=== PATIENT | female | born 1960 | race Caucasian/White ===

== ENCOUNTER 2022-04-16 08:31 | Outpatient (CLI) | payer MEDICAID, SELFPAY | END 2022-04-16 08:32 | disposition home or self-care (01) | LOC: LKVREF 04-19 12:58 | PROVIDERS: PCP Family Medicine; Visit Provider Family Medicine | DX: Z00.00 Encounter for general adult medical examination without abnormal findings (principal); E78.5 Hyperlipidemia, unspecified; I10 Essential (primary) hypertension; E78.00 Pure hypercholesterolemia, unspecified | CPT/HCPCS: 80053; 80061 ==

== ENCOUNTER 2022-05-31 14:38 | Outpatient (CLI) | payer MEDICAID, SELFPAY ==
--- NOTE | 2022-05-31 15:00 | CRLHL7_ITS ---
For Patients: As a result of the Century Cures Act, medical imaging exams and procedure reports are released immediately into your electronic medical record. You may view this report before your referring provider. If you have questions, please contact your health care provider. INDICATION: Lung cancer screening. History of smoking. High risk patient with greater than 20 pack-year smoking history. TECHNIQUE: Low-dose lung cancer screening non-contrast CT chest. Dose reduction techniques were used. COMPARISON: 05/30/2014 FINDINGS: NODULES: Stable 5 millimeter nodule within the left lower lobe, 3/122. Stable 3 millimeter nodule left upper lobe, 3/45. mild biapical pleural parenchymal scarring. Other tiny nodular like densities are present elsewhere measuring 3 millimeters or less bilaterally. LUNGS AND PLEURA: Mild emphysematous changes. No infiltrate. No effusion. MEDIASTINUM: Calcified right hilar lymph nodes representing sequela of granulomatous disease. CORONARY ARTERY CALCIFICATION: Moderately severe. LIMITED UPPER ABDOMEN: Small calcified gallstones within the gallbladder again noted. Stable simple cyst within the liver. MUSCULOSKELETAL: Normal. IMPRESSION: Innumerable small nodules bilaterally, similar to the prior study, measuring 5 millimeters or less. No definitive new nodule. LUNG-RADS CATEGORY: 2: Benign. RADIOLOGIST RECOMMENDATION: Continue annual screening with low-dose CT chest in 12 months. Please note that all CT scans at this facility use dose modulation, iterative reconstruction, and/or weight-based dosing when appropriate to reduce radiation dose to as low as reasonably achievable. Dictated by Rob Lyon MD @ 06/01/2022 10:25:40 AM (Electronically Signed)
== END 2022-05-31 14:39 | disposition home or self-care (01) ==
LOC: CT 14:40
PROVIDERS: PCP Family Medicine; Visit Provider Family Medicine
DX: Z72.0 Tobacco use (principal); Z12.2 Encounter for screening for malignant neoplasm of respiratory organs; R91.8 Other nonspecific abnormal finding of lung field
CPT/HCPCS: 71271

== ENCOUNTER 2022-09-09 13:42 | Outpatient (CLI) | payer MEDICAID, SELFPAY ==
--- NOTE | 2022-09-09 14:00 | CRLHL7_ITS ---
For Patients: As a result of the Century Cures Act, medical imaging exams and procedure reports are released immediately into your electronic medical record. You may view this report before your referring provider. If you have questions, please contact your health care provider. Indication: Intermittent claudication Comparison: None Technique: Routine duplex arterial examination of bilateral lower extremities including 2D and spectral analysis, and color Doppler imaging was performed. Findings: In the right lower extremity there are multiphasic waveforms in the common femoral artery, profunda femoral artery, superficial femoral artery, and popliteal artery. Similarly, at the ankle, there are multiphasic waveforms in the posterior tibial artery, and dorsalis pedis arteries. No elevated velocities. In the left lower extremity there are multiphasic waveforms within the common femoral artery, profunda femoral artery, superficial femoral artery, and popliteal artery. Similarly, at the ankle, there are multiphasic waveforms in the posterior tibial artery, and dorsalis pedis arteries. No elevated velocities. Impression: Atherosclerotic disease is present within both lower extremities. No elevated velocities to suggest focal stenosis. Dictated by Rob Lyon MD @ 09/10/2022 10:55:04 AM (Electronically Signed)
== END 2022-09-09 13:43 | disposition home or self-care (01) ==
LOC: US 13:42
PROVIDERS: PCP Family Medicine; Visit Provider Family Medicine
DX: Z72.0 Tobacco use (principal); I73.9 Peripheral vascular disease, unspecified; I70.202 Unspecified atherosclerosis of native arteries of extremities, left leg
CPT/HCPCS: 93926

== ENCOUNTER 2022-09-23 13:44 | Outpatient (CLI) | payer MEDICAID, SELFPAY ==
--- NOTE | 2022-09-23 14:00 | CRLHL7_ITS ---
For Patients: As a result of the Cures Act, medical imaging exams and procedure reports are released immediately into your electronic medical record. You may view this report before your referring provider. If you have questions, please contact your health care provider. BILATERAL SCREENING MAMMOGRAM WITH COMPUTER-AIDED DETECTION AND TOMOSYNTHESIS TECHNIQUE: CC and MLO views were obtained. These mammographic images have been obtained using full-field digital technique. These mammographic images were interpreted with the benefit of computer-aided detection. Breast Tomosynthesis was used in this interpretation. COMPARISON FILM: 03/27/21, 03/21/20, 03/20/19. FINDINGS: There are scattered areas of fibroglandular density IMPRESSION: There is no radiographic evidence for malignancy. ASSESSMENT: BI-RADS Category 1: Negative RECOMMENDATION: Routine screening mammogram in 1 year. A lay language report of this examination will be provided to the patient. Rob Lyon M.D. Diagnostic Radiologist [email or web address] MELANIE/Dictated by: Rob Lyon MD @ 09/24/2022 9:50:00 AM MELANIE/Dictated by: Rob Lyon MD @ 09/24/2022 9:50:00 AM (Electronically Signed)
== END 2022-09-23 13:45 | disposition home or self-care (01) ==
LOC: MAMMO 13:45
PROVIDERS: PCP Family Medicine; Visit Provider Family Medicine
DX: Z12.31 Encounter for screening mammogram for malignant neoplasm of breast (principal)
CPT/HCPCS: 77063; 77067

== ENCOUNTER 2023-04-19 09:08 | Outpatient (CLI) | payer MEDICAID, SELFPAY | END 2023-04-19 09:09 | disposition home or self-care (01) | LOC: NFLDREF 04-20 06:39 | PROVIDERS: PCP Family Medicine; Referring Provider Family Medicine; Visit Provider Family Medicine | DX: I10 Essential (primary) hypertension (principal); E78.5 Hyperlipidemia, unspecified; E78.00 Pure hypercholesterolemia, unspecified | CPT/HCPCS: 80048; 80053; 80061 ==

== ENCOUNTER 2023-06-13 13:45 | Outpatient (CLI) | payer MEDICAID, SELFPAY ==
--- NOTE | 2023-06-13 14:00 | CRLHL7_ITS ---
For Patients: As a result of the Century Cures Act, medical imaging exams and procedure reports are released immediately into your electronic medical record. You may view this report before your referring provider. If you have questions, please contact your health care provider. INDICATION: Lung cancer screening. Significant smoking history. TECHNIQUE: Low-dose volumetric helical scanning of the thorax was performed without IV contrast material. Coronal and sagittal reconstructions were obtained. COMPARISON: Chest CT of 05/31/2021 FINDINGS: Multiple new noncalcified pulmonary nodules are demonstrated. The largest new nodule is demonstrated in the right upper lobe on image 168 of series 2 and measures up to 8 mm. The lungs are clear. There is no significant airway abnormality. No pleural effusion is demonstrated. There is no mediastinal or hilar adenopathy. The heart size is normal. Calcified coronary arterial plaque is again demonstrated. Images of the upper abdomen are unremarkable. IMPRESSION: 1. Multiple new noncalcified pulmonary nodules, the largest measuring up to 8 mm. Question metastatic disease. Lung-RADS CATEGORY 4BS: VERY SUSPICIOUS: CT of the chest, abdomen and pelvis with IV contrast is recommended. 2. Coronary artery disease. Please note that all CT scans at this facility use dose modulation, iterative reconstruction, and/or weight-based dosing when appropriate to reduce radiation dose to as low as reasonably achievable. Dictated by Norberto Cuenca MD @ 06/14/2023 10:09:18 AM (Electronically Signed)
== END 2023-06-13 13:46 | disposition home or self-care (01) ==
LOC: CT 13:46
PROVIDERS: PCP Family Medicine; Visit Provider Family Medicine
DX: Z12.2 Encounter for screening for malignant neoplasm of respiratory organs (principal); R91.8 Other nonspecific abnormal finding of lung field; I25.10 Atherosclerotic heart disease of native coronary artery without angina pectoris; Z72.0 Tobacco use
CPT/HCPCS: 71271

== ENCOUNTER 2023-06-21 08:23 | Outpatient (CLI) | payer MEDICAID, SELFPAY ==
[2023-06-21 08:52] LABS: Creatinine* 0.6 mg/dL (0.5-1.5); Estimated Glomerular Filt Rate 100 ml/min
--- NOTE | 2023-06-21 09:00 | CRLHL7_ITS ---
For Patients: As a result of the Century Cures Act, medical imaging exams and procedure reports are released immediately into your electronic medical record. You may view this report before your referring provider. If you have questions, please contact your health care provider. INDICATION: Abnormal finding on lung of CT chest, evaluation for metastatic disease. TECHNIQUE: CT chest, abdomen and pelvis acquired with 77 mL Isovue 370 IV contrast. COMPARISON: 06/13/[address] FINDINGS: CHEST: Cardiovascular structures: Heart size is normal. Thoracic aorta and main pulmonary artery are normal in caliber. Coronary artery calcifications. Mediastinum and katie: No mass or adenopathy. 1.5 cm left thyroid nodule. Lungs and pleura: Numerous small, upper lung predominant pulmonary nodules measuring to 7 mm as seen on the screening chest CT. Chest wall and axilla: No mass or adenopathy. Bones: No suspicious bone lesions. Unremarkable for age. ABDOMEN AND PELVIS: Liver: Small left hepatic lobe cyst. Gallbladder and bile ducts: Cholelithiasis. Pancreas: Unremarkable. Spleen: Unremarkable. Adrenal glands: Unremarkable. Kidneys: No mass, stone, or hydronephrosis. Tiny vascular calcifications in the left renal hilum. GI tract: Colonic diverticulosis without diverticulitis Vascular structures: Atherosclerosis. Lymph nodes: Unremarkable. Miscellaneous: Unremarkable. No free air or significant free fluid. Pelvic Organs: Unremarkable. Bones: No suspicious bone lesions. Unremarkable for age. IMPRESSION: 1. Tiny upper lobe predominant bilateral pulmonary nodule similar to the screening chest CT. Predominance is more typical of infectious ventilation of causes, however metastatic disease not excluded. 2. No evidence for primary tumor. 3. Cholelithiasis. Please note that all CT scans at this facility use dose modulation, iterative reconstruction, and/or weight-based dosing when appropriate to reduce radiation dose to as low as reasonably achievable. Dictated by Samson Reyes MD @ 06/21/2023 12:53:45 PM (Electronically Signed)
== END 2023-06-21 08:24 | disposition home or self-care (01) ==
LOC: CT 08:23
PROVIDERS: PCP Family Medicine; Visit Provider Family Medicine
DX: R91.8 Other nonspecific abnormal finding of lung field (principal); K80.20 Calculus of gallbladder without cholecystitis without obstruction
CPT/HCPCS: 36415; 71260; 74177; 82565; Q9967

== ENCOUNTER 2023-06-29 09:31 | Outpatient (CLI) | payer MEDICAID, SELFPAY ==
--- NOTE | 2023-06-29 09:45 | CRLHL7_ITS ---
For Patients: As a result of the Century Cures Act, medical imaging exams and procedure reports are released immediately into your electronic medical record. You may view this report before your referring provider. If you have questions, please contact your health care provider. INDICATION: Nontoxic single thyroid nodule COMPARISON: CT 06/21/2023 TECHNIQUE: Callahan scale and color Doppler images were acquired of the thyroid gland. FINDINGS: Cystic nodule left thyroid lobe measures 1.6 x 1.2 x 1.2 cm. The right lobe measures 3.3 x 1.8 x 1.2 cm and the left lobe measures 4.6 x 1.6 x 1.5 cm in size. The color Doppler images demonstrate normal vascularity. Isthmus measures 4 millimeters. There is no evidence of cervical lymphadenopathy or parathyroid mass. IMPRESSION: Benign 1.6 cm cystic nodule left thyroid lobe, TR 1. No follow-up is necessary. Dictated by Rob Lyon MD @ 06/29/2023 10:14:51 AM (Electronically Signed)
== END 2023-06-29 09:32 | disposition home or self-care (01) ==
LOC: US 09:32
PROVIDERS: PCP Family Medicine; Visit Provider Family Medicine
DX: E04.1 Nontoxic single thyroid nodule (principal)
CPT/HCPCS: 76536

== ENCOUNTER 2023-10-19 08:45 | Outpatient (CLI) | payer MEDICAID, SELFPAY ==
--- NOTE | 2023-10-19 09:00 | CRLHL7_ITS ---
For Patients: As a result of the Century Cures Act, medical imaging exams and procedure reports are released immediately into your electronic medical record. You may view this report before your referring provider. If you have questions, please contact your health care provider. Indication: Pulmonary nodules Technique: Noncontrast CT chest Please note that all CT scans at this facility use dose modulation, iterative reconstruction, and/or weight-based dosing when appropriate to reduce radiation dose to as low as reasonably achievable. Comparison: 06/21/2023, 06/13/2023. Findings: In the upper abdomen, stones in the gallbladder noted. Calcified splenic granulomas. Vascular calcifications. 9 millimeter simple intrahepatic cyst. No pleural or pericardial effusion. Left thyroid lobe nodule measures 1.3 cm, unchanged. Stable upper limits of normal lymph node in the precarinal space of the mediastinum. Other subcentimeter lymph nodes elsewhere are similar, particularly in the prevascular space. Degenerative joint disease at the left shoulder with degenerative subchondral cystic change. Stable 2 millimeter nodular densities within the right upper lobe. Tiny nodular densities elsewhere are similar bilaterally. Impression: Multiple small bilateral pulmonary nodules are present measuring less than 3 millimeters. Continued follow-up in 1 year recommended. Please note that all CT scans at this facility use dose modulation, iterative reconstruction, and/or weight-based dosing when appropriate to reduce radiation dose to as low as reasonably achievable. Dictated by Rob Lyon MD @ 10/19/2023 12:39:50 PM (Electronically Signed)
--- NOTE | 2023-10-19 09:45 | CRLHL7_ITS ---
For Patients: As a result of the Century Cures Act, medical imaging exams and procedure reports are released immediately into your electronic medical record. You may view this report before your referring provider. If you have questions, please contact your health care provider. BILATERAL SCREENING MAMMOGRAM WITH COMPUTER-AIDED DETECTION AND TOMOSYNTHESIS TECHNIQUE: CC and MLO views were obtained. These mammographic images have been obtained using full-field digital technique. These mammographic images were interpreted with the benefit of computer-aided detection. Breast Tomosynthesis was used in this interpretation. COMPARISON FILM: 09/23/22, 03/27/21, 03/21/22. FINDINGS: There are scattered areas of fibroglandular density IMPRESSION: There is no radiographic evidence for malignancy. ASSESSMENT: BI-RADS Category 1: Negative RECOMMENDATION: Routine screening mammogram in 1 year. A lay language report of this examination will be provided to the patient. Rob Lyon M.D. Diagnostic Radiologist [email or web address] MEALNIE/Dictated by: Rob Lyon MD @ 10/19/2023 11:03:00 AM (Electronically Signed)
== END 2023-10-19 08:46 | disposition home or self-care (01) ==
LOC: CT 08:45
PROVIDERS: PCP Family Medicine; Visit Provider Family Medicine
DX: R91.8 Other nonspecific abnormal finding of lung field (principal); Z12.31 Encounter for screening mammogram for malignant neoplasm of breast
CPT/HCPCS: 71250; 77063; 77067

== ENCOUNTER 2024-03-29 08:17 | Outpatient (CLI) | payer OTHER, SELFPAY | END 2024-03-29 08:18 | disposition home or self-care (01) | LOC: NFLDREF 04-02 11:51 | PROVIDERS: PCP Family Medicine; Referring Provider Family Medicine; Visit Provider Family Medicine | DX: I10 Essential (primary) hypertension (principal); E78.5 Hyperlipidemia, unspecified | CPT/HCPCS: 80048; 80061; 80076 ==

== ENCOUNTER 2024-10-24 12:47 | Outpatient (CLI) | payer OTHER, SELFPAY ==
--- NOTE | 2024-10-24 13:00 | CRLHL7_ITS ---
For Patients: As a result of the Century Cures Act, medical imaging exams and procedure reports are released immediately into your electronic medical record. You may view this report before your referring provider. If you have questions, please contact your health care provider. INDICATION: Follow-up pulmonary nodules. TECHNIQUE: CT chest without contrast. COMPARISON: CT chest 10/19/2023. FINDINGS: Lungs and pleura: Left lower lobe solid nodule measuring 5 mm (series 3, image 80), unchanged. Right upper lobe nodule measuring 4 mm (image 17), unchanged. Nodule along the right minor fissure measuring 4 mm (image 43), unchanged. Peripheral right upper lobe pulmonary nodules measuring up to 4 mm (image 30), unchanged. Numerous additional smaller bilateral upper lobe pulmonary nodules are grossly unchanged. Multiple right lower lobe pulmonary nodules measuring up to 3 mm (image 58), unchanged. Multiple small left lower lobe pulmonary nodules measuring up to 3 mm (image 41) grossly unchanged. No new or enlarging nodules. Heart and vasculature: No cardiomegaly or pericardial effusion. There are coronary artery calcifications and atherosclerotic calcifications of the aorta. No thoracic aortic aneurysm. Lymph nodes/mediastinum: Calcified hilar lymph nodes likely reflect sequela of prior granulomatous disease. Mildly prominent mediastinal lymph nodes are grossly unchanged. Chest wall: No suspicious chest wall mass or fluid collection. Upper abdomen: No acute abnormality. Bones: No acute abnormality. IMPRESSION: 1. Stable pulmonary nodules, as above. No new or enlarging nodules. Repeat examination in 1 year recommended to ensure continued stability. 2. Coronary artery calcifications. Please note that all CT scans at this facility use dose modulation, iterative reconstruction, and/or weight-based dosing when appropriate to reduce radiation dose to as low as reasonably achievable. Dictated by Mikhail Jimenez MD @ 10/27/2024 1:38:13 PM (Electronically Signed)
--- NOTE | 2024-10-24 13:30 | CRLHL7_ITS ---
For Patients: As a result of the Century Cures Act, medical imaging exams and procedure reports are released immediately into your electronic medical record. You may view this report before your referring provider. If you have questions, please contact your health care provider. DXA BONE MINERAL DENSITY STUDY Current height (in): 65. Weight (lb): 150. Menopause age: 48. Ethnicity: White. 1. Have you had a previous hip or vertebral fracture? No. 2. Have you had any fractures during your adult life which did not result from significant trauma (e.g., auto accident)? No. 3. Did either of your parents have a hip fracture? No. 4. Do you smoke? Yes. 5. Have you ever taken Glucocorticoids? No. 6. Do you have rheumatoid arthritis? No. 7. Do you have secondary osteoporosis? No. 8. Do you drink 3 or more alcoholic drinks per day? No. 9. Are you being treated for osteoporosis? No. 10. Have you ever taken any of the following medications: Actonel, Evista, Fosamax, Miacalcin, Reclast, Boniva, Forteo, HRT (i.e. estrogen/hormone therapy), Protelos, Prolia, Vitamin D, Calcium, other ??? please specify. ANSWER: Yes, Vitamin D, and Calcium. 11. Do you have any of the following medical conditions: Anorexia or bulimia, asthma or emphysema, end stage renal disease, hyperparathyroidism, any seizure disorders, cancer, inflammatory bowel diseases, hysterectomy, other ??? please specify. ANSWER: No. 12. What was your maximum height (inches)? 66. 13. Do you perform weight bearing exercise regularly? No. 14. Do you regularly consume dairy products? Yes. 15. Do you drink caffeinated beverages? Yes. 16. At what age did your period start? 13. 17. Are you premenopausal? No. 18. How many full term pregnancies have you had? 2. 19. Have you ever missed your period for more than 6 months in a row (not including or menopause)? No. TECHNIQUE: Bone mineral density study was performed using the [employer]. FINDINGS: The results of the study expressed as bone mineral density (BMD) are as follows: Lumbar spine L1 to L4: BMD: 0.953 g/cm2. T-score: -0.9. Z-score: 1.0. Neck Left: BMD: 0.731 cm2. T-score: -1.1. Z-score: 0.5. Right: BMD: 0.674 g/cm2. T-score: -1.6. Z-score: -0.0 . Total Left: BMD: 0.818 g/cm2. T-score: -1.0. Z-score: 0.3. Right: BMD: 0.762 g/cm2. T-score: -1.5. Z-score: -0.2. IMPRESSION: Osteopenia. BELOW. FRAX 10-year Fracture Risk Major Osteoporotic Fracture: <0.1 percent Hip Fracture: <0.1 percent Reported Risk Factors: [place] () Neck BMD= 0.674, BMI=24.9, smoking. Rob Lyon M.D. Diagnostic Radiologist [email or web address] [email or web address] DW/Dictated by: Rob Lyon MD @ 10/29/2024 8:51:00 AM (Electronically Signed)
--- NOTE | 2024-10-24 14:00 | CRLHL7_ITS ---
For Patients: As a result of the Cures Act, medical imaging exams and procedure reports are released immediately into your electronic medical record. You may view this report before your referring provider. If you have questions, please contact your health care provider. COMPARISON: 10/19/2023, 09/23/2022, 03/27/2021 TECHNIQUE: Digital mammogram in CC and MLO projections including computer-aided detection (CAD) and tomosynthesis. BREAST COMPOSITION: There are scattered areas of fibroglandular density. FINDINGS: No suspicious findings. ASSESSMENT: BI-RADS 1 Negative RECOMMENDATION: Annual screening mammogram. A lay language report of this examination will be provided to the patient. Dictated by: Rob Lyon MD @ 10/30/2024 12:30:59 (Electronically Signed)
== END 2024-10-24 12:48 | disposition home or self-care (01) ==
PROVIDERS: PCP Radiology Diagnostic Radiology; Referring Provider Family Medicine; Visit Provider Radiology Diagnostic Radiology
DX: R91.8 Other nonspecific abnormal finding of lung field (principal); I25.10 Atherosclerotic heart disease of native coronary artery without angina pectoris; Z72.0 Tobacco use; Z12.31 Encounter for screening mammogram for malignant neoplasm of breast; Z78.0 Asymptomatic menopausal state; M85.89 Other specified disorders of bone density and structure, multiple sites
CPT/HCPCS: 71250; 77063; 77067; 77080

== ENCOUNTER 2025-04-16 08:55 | Outpatient (CLI) | payer OTHER, SELFPAY | END 2025-04-16 08:56 | disposition home or self-care (01) | LOC: NFLDREF 04-22 03:47 | PROVIDERS: PCP Family Medicine; Referring Provider Radiology Diagnostic Radiology; Visit Provider Family Medicine | DX: Z13.9 Encounter for screening, unspecified (principal); Z13.6 Encounter for screening for cardiovascular disorders | CPT/HCPCS: 80053; 80061; 84443 ==